=== PATIENT | female | born 1945 | race Caucasian/White ===

== ENCOUNTER 2020-11-08 08:02 | Observation (INO) ==
--- NOTE | 2020-10-11 12:13 | PAT Medication Instructions ---
Medication Instructions Date of Service October 11, 2020 Home Medications aspirin 81 mg PO QAM levothyroxine 87.5 mcg PO 6XWK levothyroxine 175 mcg PO WK metformin 500 mg PO BID paroxetine HCl 20 mg PO QAM polyethylene glycol 3350 [Miralax] 17 g PO QAM PRN simvastatin 40 mg PO QAM Continue as directed levothyroxine 87.5 mcg PO 6XWK levothyroxine 175 mcg PO WK DO NOT take the morning of surgery metformin 500 mg PO BID polyethylene glycol 3350 [Miralax] 17 g PO QAM PRN Take morning of surgery With a small sip of water, OTHERWISE NOTHING TO EAT OR DRINK AFTER MIDNIGHT: aspirin 81 mg PO QAM paroxetine HCl 20 mg PO QAM simvastatin 40 mg PO QAM Take evening before surgery metformin 500 mg PO BID Other Notes If you have any questions please call us at [phone] or [phone] or [phone] or [phone]
--- NOTE | 2020-10-13 12:55 | Anesthesiology Consultation ---
Date of Service October 13, 2020 Assessment & Plan (1) Encounter for pre-operative examination: - COVID screening: Per assessment on 10/13: Travel screen negative, no known COVID-19 positive contacts or current COVID-19 related symptoms. Patient fully vaccinated. Surgeon arranging preop COVID testing. Awaiting results. - PCP office visit (10/03/20): "Patient medically clear for right total knee replacement." - S/P Left TKA (12/13/17): SAB at L4 (x1 attempt) + PNB at [facility] - Check BSG AM DOS - Check coags AM DOS (d/t lab error, coags not done with preop labs/most recent coags WNL) Chart Review Chart Review: Acceptable Risk for Surgery and Patient seen in Pre Admission Testing Teaching & Discussion Pre-Anesthesia Teaching/Discussion Notes: Instructed NPO after midnight before surgery,except medications with 15 cc of water. Medication instructions provided according to the PAT guidelines. History Surgery Operation Date: 11/08/20 08:50 Proposed Procedures p Right Total Knee Arthroplasty - Fco Mccarty MD Height/Weight Height: 5 ft 2 in Weight: 94.4 kg Allergies Allergy/AdvReac Type Severity Reaction Status Date / Time No Known Allergies Allergy Verified 10/10/20 15:35 Medications Home Medications Medication Instructions Recorded Confirmed Last Taken aspirin 81 mg PO QAM 10/10/20 10/10/20 Unknown levothyroxine 87.5 mcg PO 6XWK 10/10/20 10/10/20 Unknown levothyroxine 175 mcg PO WK 10/10/20 10/10/20 Unknown metformin 500 mg PO BID 10/10/20 10/10/20 Unknown paroxetine HCl 20 mg PO QAM 10/10/20 10/10/20 Unknown polyethylene glycol 3350 [Miralax] 17 g PO QAM PRN 10/10/20 10/10/20 Unknown simvastatin 40 mg PO QAM 10/10/20 10/10/20 Unknown Past Medical History Medical History Anxiety Diabetes mellitus, type 2 NIDDM Hx of vertigo Hyperlipidemia Hypothyroidism Right knee DJD Exercise / Class Metabolic Activity II 4-5 Yardwork/Stairs/Walk up hill (one flight of stairs (no chest pain, no sob)) Past Family History Family History Other No family history of adverse response to anesthesia Past Surgical History Surgical History History of cataract surgery bilateral History of colonoscopy History of left knee replacement Left TKA (12/13/17): SAB at L4 (x1 attempt) + PNB at [facility] Status post total hip replacement, right Past Anesthesia History No Hx of Anesthesia Complications and No Family Hx of Anesthesia Complications History of PONV No Hx of PONV and No Hx of Motion Sickness Social History Smoking Status: Never smoker Do You Dip or Chew Tobacco: No Hx Alcohol Use: No Hx Substance Use: No Review of Systems + snoring. No witnessed apnea events. Patient denies chest pain, shortness of breath, dyspnea on exertion, joint pain, reflux, cough, wheezing, palpitations. Physical Exam Vital Signs VITALS BP 128/85 P 80 TEMP 98.0 SP02 95%RA RESP 16 PHYSICAL Full neck and c-spine range of motion. Full TMJ range of motion. TMD 3 finger breaths Mallampati Score 2 Dentition: missing molars, + bridge (upper front) Lungs: clear throughout to auscultation Cardiac: regular rate and rhythm, no murmurs noted Spine: normal Carotid arteries: negative bruit Extremities: no edema Testing Laboratory Results 10/13/20 13:25 10/13/20 13:25 Hemoglobin A1c 6.6 % (4.5-5.6) H 10/13/20 13:25 Blood Type O Positive 10/13/20 13:25 Antibody Screen NEGATIVE 10/13/20 13:25 09/30/20 T3 96 (WNL) FREE T4 0.86L TSH 1.91 (WNL) Electrocardiogram Date: 10/03/20 Sinus rhythm at 81 bpm. Low voltage QRS in precordial leads. Poor R wave progression. "No change" per PCP review. Chest X-Ray Date: 10/13/20 FINDINGS: PA and lateral chest radiographs are compared to study dated 09/13/2011. The heart is top normal for projection. There is mild bibasilar atelectasis. No airspace consolidation or pleural effusion is identified. There is no pneumothorax. The skeletal structures are osteopenic. The bony thorax appears intact. Degenerative change and hyperkyphosis are noted in the thoracic spine. IMPRESSION: No active disease in the chest.
--- NOTE | 2020-10-13 13:57 | XRay Report ---
TWO VIEW CHEST CLINICAL HISTORY: Preoperative examination. Degenerative joint disease. FINDINGS: PA and lateral chest radiographs are compared to study dated 09/13/2011. The heart is top no rmal for projection. There is mild bibasilar atelectasis. No airspace consolidation or pleural effusi on is identified. There is no pneumothorax. The skeletal structures are osteopenic. The bony thorax a ppears intact. Degenerative change and hyperkyphosis are noted in the thoracic spine. IMPRESSION: No active disease in the chest. ACT 112: Negative or not required by law. Electronically signed by: Adria Brooks M.D. 10/13/2020 1:55 PM
[2020-10-13 15:38] LABS: Basophils # (auto) 0.03 K/uL (0-0.2); Basophils % (auto) 0.5 %; Eosinophils # (auto) 0.28 K/uL (0-0.5); Eosinophils % (auto) 4.7 %; Hematocrit (blood only) 38.9 % (37-47); Immature Granulocytes # (auto) 0.01 K/uL (0.00-0.02); Immature Granulocytes % (auto) 0.2 %; Lymphocytes # (auto) 1.92 K/uL (1.2-3.4); Lymphocytes % (auto) 32.1 %; Mean Corpuscular Hemoglobin 30.4 pg (25-34); Mean Corpuscular Hgb Conc 33.4 g/dL (32-36); Mean Corpuscular Volume 90.9 fL (80-100); Mean Platelet Volume 10.8 fL (7.4-10.4); Monocytes # (auto) 0.55 K/uL (0.11-0.59); Monocytes % (auto) 9.2 %; Neutrophils # (auto) 3.19 K/uL (1.4-6.5); Neutrophils % (auto) 53.3 %; Platelet Count 310 K/uL (130-400); RDW Coefficient of Variation 13.4 % (11.5-14.5); RDW Standard Deviation 44.6 fL (36.4-46.3); Red Blood Count 4.28 M/uL (4.2-5.4); White Blood Count 5.98 K/uL (4.8-10.8)
[2020-10-13 15:45] LABS: BUN Creatinine Ratio 15.5 (10-20); Blood Urea Nitrogen 14 mg/dl (7-18); C Reactive Protein < 0.29 mg/dl (0-0.29); Calcium 9.1 mg/dl (8.5-10.1); Carbon Dioxide 28 mmol/L (21-32); Chloride 107 mmol/L (98-107); Creatinine Clr Calc Pharmacy 57.8 ml/min; Est GFR (African American) 72.5 ml/min; Est GFR (Non-African American) 62.5 ml/min; Glucose 106 mg/dl (70-99); Potassium 4.1 mmol/L (3.5-5.1); Sodium 139 mmol/L (136-145)
[2020-10-14 06:18] LABS: Estimated Average Glucose 143 mg/dl; Hemoglobin A1C 6.6 % (4.5-5.6)
--- NOTE | 2020-11-05 14:50 | History and Physical Report ---
DATE OF ADMISSION: 11/08/2020 CHIEF COMPLAINT: Right knee pain. HISTORY OF PRESENT ILLNESS: The patient is a 74-year-old white female who presents for surgical treatment of her right knee. She has got a long history of joint problems, had a left knee replacement done by myself in 2018 and a right hip replacement done by Dr. Shrestha in the past. She developed increased pain and discomfort in her right knee. The shots helped her initially, but became less successful over time. The last 2 shots have not helped much at all. She describes global pain. The more she is up on it, the more it hurts. She limps more as the day goes on. She would like to have her right knee fixed. PAST MEDICAL HISTORY: 1. Diabetes x4 years. 2. Anxiety/depression. 3. Obesity with BMI of 39. PAST SURGICAL HISTORY: Include, 1. Left knee replacement done on 12/15/2017. 2. Right hip replacement done on 10/10/2011. ALLERGIES: None. CURRENT MEDICATIONS: 1. Metformin 500 mg in the morning. 2. Paxil 20 mg daily. 3. Zocor 40 mg a day. 4. Aspirin 81 mg. 5. Tylenol. SOCIAL HISTORY: A 74-year-old white female. She is a . Lives by herself. Her son lives next door. FAMILY HISTORY: Noncontributory. REVIEW OF SYSTEMS: Significant for diabetes. Her diabetes is fairly well controlled. Denies any chest pain or shortness of breath. No history of DVT or PE. No known bleeding problems. PHYSICAL EXAMINATION: GENERAL: Shows a pleasant, middle-aged female. Looks to be in pretty good health. HEENT: Benign. NECK: Supple, no lymphadenopathy. LUNGS: Clear to auscultation. HEART: Regular rate and rhythm. ABDOMEN: Soft, nontender, nondistended. EXTREMITIES: Grossly neurovascularly intact except as follows: Examination of the right knee reveals the patient walks with a slight bit of a limp. She has got valgus alignment to her knee, which is increased with weightbearing. She has moderate soft tissue envelope. Small knee effusion. Range of motion is about 5 degrees short of full extension to 125 degrees of flexion. No instability. No pain with hip motion. X-RAYS: X-rays of the right knee reviewed. It shows advanced right knee lateral compartment DJD. She has complete loss of her lateral joint space. She has got osteophytes primarily laterally. ASSESSMENT: A 74-year-old white female with a history of a left knee replacement as well as right hip replacement with multiple comorbidities including diabetes, obesity, and anxiety/depression, now desiring a right total knee replacement. She has failed conservative measures and would like to proceed with a knee replacement. PLAN: We are going to proceed with right knee replacement. The risks and benefits of this procedure were explained to the patient including, but not limited to, DVT, PE, , infection, neurological injury, vascular injury, bleeding problem, pain, limited range of motion, stiffness, failure to relieve her symptoms, incomplete relief of symptoms, need for further surgery in the future, fracture, leg length inequality, nerve palsy, etc. The patient understands and desires to proceed. Informed consent was obtained. As far as discharge plans, she is hoping to go home with some home health. Her son lives next door to her and hopefully can assist in her care. She knows to hold her metformin the morning of surgery.
[~2020-11-08 08:02] MED LIST: ACETAMINOPHEN 500 MG TAB PO SCH; BUPIVACAINE 0.5 % 5 MG/1 ML PF 10ML VIAL ONE; BUPIVACAINE LIPOSOME/PF 266 MG, BUPIVACAINE/EPINEPHRINE 50 ML, SODIUM CHLORIDE 0.9% 30 ... INFIL SCH; EPINEPHrine INJ 1 MG/ML AMP ONE; FAMOTIDINE 20 MG TAB PO SCH; GABAPENTIN 300 MG CAP PO SCH; LR 500ML BOLUS, THEN 15ML/HR IV SCH; LR 60ML/HR IV SCH; ROPIVACAINE 0.5% 5 MG/ML 30 ML VIAL ONE; Scopolamine 1 MG TDSY TD SCH; TRANEXAMIC ACID 1,000 MG **IV Intra-op IV SCH; ceFAZolin 2000MG 2,000 MG/15 ML SYR IV SCH
--- NOTE | 2020-11-08 08:49 | History & Physical Bridge Note ---
Date of Service November 08, 2020 History & Physical Bridge Note I have examined the patient, reviewed the History & Physical and in the interval since the performance of the History & Physical I have noted the following changes of clinical significance: no changes noted
[2020-11-08 09:19] LABS: Partial Thromboplastin Ratio 1.1; Partial Thromboplastin Time 27.9 Seconds (21.0-31.0); Prothrombin Time 9.9 Seconds (9.0-12.0)
[2020-11-08] MEDS ORDERED: fentaNYL citrate 100 MCG/2 ML VIAL ONE (09:29)
[2020-11-08] MEDS ORDERED: PROPOFOL IV EMULSION 10 MG/ML 20 ML VIAL IV ONE ×3 (09:29→12:22)
[2020-11-08] MEDS ORDERED: MIDAZOLAM HCL 1 MG/ML 2ML VIAL ONE (09:29)
[2020-11-08] MEDS ORDERED: SODIUM CHLORIDE 0.9% PF 50 ML VIAL ONE (11:18)
[2020-11-08] MEDS ORDERED: BUPIVACAINE LIPOSOME 1.3% 266 MG/20 ML VIAL ONE (11:18)
[2020-11-08] MEDS ORDERED: BUPIVACAINE 0.25% 30 ML VIAL ONE (11:19)
[2020-11-08] MEDS ORDERED: EPINEPHrine INJ 1 MG/ML AMP ONE (11:19)
[2020-11-08] MEDS ORDERED: ATROPINE SULFATE 0.1 MG/ML 10ML SYR IV PRN (11:37)
[2020-11-08] MEDS ORDERED: ePHEDrine sulfate 50 MG/ML AMP IV PRN (11:37)
[2020-11-08] MEDS ORDERED: PHENYLEPHRINE 100MCG/ML 5ML SYR ONE (12:23)
--- NOTE | 2020-11-08 13:23 | Operative Report ---
Post Operative Report Pre & Post Diagnosis Operation Date: 11/08/20 10:40 Pre-Op Diagnosis: Right Knee Advanced Degenerative Joint Disease Post-Op Diagnosis: Right Knee Advanced Degenerative Joint Disease I identified the patient and participated in the time-out.: Yes Procedure Operation Date: 11/08/20 10:40 Actual Procedures p Right Total Knee Arthroplasty(Right) - Fco Mccarty MD Surgeon Fco Mccarty MD Medical Oncologist ERIKA Gonzalez Estimated Blood Loss 50 Findings Consistent with Post-Op Diagnosis Operative findings revealed fairly extensive grade 4 ofte-ez-dapo disease in all 3 compartments most severe in the lateral compartment. She had a valgus deformity to her knee with a significant knee joint effusion. Fluids 700 cc Specimens Right knee sent for pathology Drains None Anesthesia Type Spinal MAC Disposition Accompanied Patient To Recovery: No Disposition: Recovery Room Indications Patient is a 74-year-old female whose had a history of multiple orthopedic joint problems in the past. She had her left knee replaced in the past as well as her right hip. Over the years she developed increased pain discomfort in her right knee. She failed conservative measures. She elected proceed with surgical treatment. Description of Procedure Operative implants consist of: 1. Biomet Vanguard size 62.5 right posterior stabilized femoral component. 2. Biomet Vanguard size 63 tibial tray. 3. 12 mm posterior stabilized polyethylene insert. 4. 28 x 8 all polypatella. Patient was taken the operating, identified, placed on the operating table supine position but all contractors were appropriately padded. IV antibiotics tried by anesthesia team. A spinal anesthetic and abductor canal block had provided in the holding area. Daniels catheter was placed in sterile fashion a right thigh turn was then placed in the right lower extremities and prepped and draped in usual sterile fashion. The right leg was elevated exsanguinated with use of an Esmarch and turns placed at 300 mmHg. An anterior approach to the right knee was then performed through longitudinal incision centered over the patella. Sharp dissection was got through subcutaneous is down the extensor mechanism. A medial parapatellar arthrotomy incision was made. Some subperiosteal dissection was carried out medially. The fat pad was resected from each patella tendon. Lateral patellofemoral ligament was released. Patella subluxated laterally and the knee was flexed. The osteophytes taken off distal femur. The ACL and PCL were then released from distal femur and the tibia subluxated anteriorly. The external tibial alignment jig was then placed in the interface the tibia and adjusted 12 mm medially. Proximal tibial cut was made remove about 3 to 4 mm of bone from the medial side. The tibia sized to a size 63. Attention drawn the femur. The distal femur examined the sharp drill bit intramedullary canal was suction. A right 5 valgus cutting guide was placed. The distal femoral cutting block was pinned in place. Distal femoral cut was made to take an additional 3 mm of bone off distal femur. The femur was then sized to a size 62.5. We did downsize this slightly. The AP cutting block was pinned parallel to the epicondylar axis which was 3 of external rotation. Anterior cut, anterior chamfer, posterior cut, posterior chamfer cuts were made. Box cutting guide was placed in just slight lateral and the box cut was made. The knee was flexed. The remnants of the medial and lateral menisci were excised. The osteophyte taken off the posterior aspect the femur. A trial femoral component was placed. The tibial tray was pinned in maximum external rotation and the drill and stem punch used to create defect in proximal tibia for the tibial tray. The knee was then trialed and 12 mm insert fit most appropriately. Attention drawn the patella. The patella was cleaned of all soft tissues. Patella thickness measured 18 mm in thickness was cut down to 12. Was sized to a size 28 patella. The lug holes were drilled for the 28 patella. The lateral osteophyte was removed. Patella button was placed. Knee was taken through range of motion patella tracked nicely with no thumbs test. Attention drawn to placing permanent components. All trial components were removed. A bone plug was placed in the distal femur limit blood loss put a double batch Pal[place]os G cement was mixed. A Biomet Vanguard size 62.5 right posterior stabilized femoral component, size 63 tibial tray, a 12 mm posterior stabilized polyethylene insert, and a 28 x 8 all polypatella were then cemented in place. Knee was brought out into full extension until cement hardened. Final cement check was then performed. Pericapsular tissues were injected with a total 100 cc of combination of 20 cc of Exparel, 30 cc normal saline, 50 cc of quarter percent Marcaine with epinephrine. Patient did receive 1 g tranexamic acid per the turn was then let down for turn time 56 min. Hemostasis assured use electrocautery. The wounds once again irrigated. The extensor mechanism closed with combination 1 PDS suture #1 Vicryl suture in [id number] fashion. The extensor mechanism checked found to be intact the subcutaneous tissue then closed with 2 Dexon suture in a buried interrupted fashion skin was closed skin viv. Leg was then cleaned dried a sterile dressing was Xeroform, 4 x 4's, sterile cast padding, Talib bandage were applied. Patient then transferred to the recovery room in stable condition. Patient tolerated procedure well and there were no complications. Carlos Gonzalez, my physician rehab assistant, was present for the entire procedure. His assistance was essential and required for appropriate patient positioning, prepping and draping, surgical exposure, performing the technical details of the operation, placement the implants, closure of the wound, and placement of the sterile bandage. I attest to the content of the Intraoperative Record and any orders documented therein. Any exceptions are noted below.
--- NOTE | 2020-11-08 13:57 | Anesthesiology Progress Note ---
Date of Service November 08, 2020 Anesthesia Post Procedure Vital Signs Vital Signs: Temp Pulse Pulse Resp BP Pulse Ox 11/08/20 13:55 80 16 130/78 94 11/08/20 13:45 36.2 C L 83 16 124/74 94 11/08/20 13:35 87 18 112/82 94 11/08/20 13:25 90 18 111/56 L 95 11/08/20 13:17 36.4 C L 96 H 17 120/50 L 98 11/08/20 10:01 189/96 H 11/08/20 09:43 36.6 C 98 H 20 170/103 H 95 11/08/20 08:52 36.9 C 93 H 20 169/88 H 97 Transfer of Care Handoff Completed per policy Notes Mental Status: alert / awake / arousable Patient Amnestic to Procedure: Yes Nausea / Vomiting: adequately controlled Pain: adequately controlled Airway Patency, RR, SpO2: stable & adequate BP & HR: stable & adequate Hydration State: stable & adequate Neuraxial Anesthesia: was administered and sensory block is resolving Anesthetic Complications: no major complications apparent
[2020-11-08] MEDS ORDERED: POLYETHYLENE (MIRALAX) 17 GM PACK PO PRN (14:10)
[2020-11-08] MEDS ORDERED: ALUMINUM/MAGNESIUM SUSP 30 ML UDC PO PRN (14:10)
[2020-11-08] MEDS ORDERED: traMADol HCL 50 MG TABLET PO PRN (14:10)
[2020-11-08] MEDS ORDERED: METOCLOPRAMIDE HCL INJ 5 MG/ML 2 ML VIAL IV PRN (14:10)
[2020-11-08] MEDS ORDERED: ONDANSETRON INJ 2 MG/ML 2 ML VIAL IV PRN (14:10)
[2020-11-08] MEDS ORDERED: NALOXONE HCL 0.4 MG/1 ML VIAL/CARP IV PRN (14:10)
[2020-11-08] MEDS ORDERED: bisacodyL 10 MG SUPP PR PRN (14:10)
[2020-11-08] MEDS ORDERED: MAGNESIUM HYDROXIDE SUSP 30 ML UDC PO PRN (14:10)
[2020-11-08] MEDS ORDERED: HYDROmorphone INJ 0.5 MG/0.5 ML SYR IV PRN (14:10)
[2020-11-08] MEDS ORDERED: PHARMACY GLYCEMIC MGMT CONSULT PRN (14:22)
--- NOTE | 2020-11-08 14:22 | XRay Report ---
XR knee RT 1 or 2V routine CLINICAL HISTORY: Surgical Post Op COMPARISON: Knee radiographs September 21, 2020 FINDINGS: Alignment of the total right knee arthroplasty is anatomic. There is no periprosthetic fra cture or unexpected radiopaque foreign body. There are skin viv. IMPRESSION: Expected findings following total right knee arthroplasty. ACT 112: Negative or not required by law. Electronically signed by: Daniel Byrd M.D. 11/08/2020 2:20 PM
[2020-11-08] MEDS: SODIUM CHLORIDE 0.9% 1000ML 1,000 ML IV SCH (14:32)
[2020-11-08] MEDS ORDERED: GLUCAGON FOR INJ 1 MG VIAL IM PRN (14:45)
[2020-11-08] MEDS ORDERED: GLUCOSE 40% GEL 15 GM TUBE PO PRN (14:45)
[2020-11-08] MEDS ORDERED: GLUCOSE 10 TABS/TUBE PO PRN (14:45)
[2020-11-08] MEDS ORDERED: DEXTROSE 50% 50 ML SYRINGE IV PRN (14:45)
[2020-11-08] MEDS ORDERED: CARBOHYDRATES FOR HYPOGLYCEMIA PO PRN (14:45)
--- NOTE | 2020-11-08 14:46 | Pharmacy Report ---
Pharmacy Glycemic Short Note 2 - Date of Service November 08, 2020 - Glycemic Short BSG Results (Last 24 hours): 11/08/20 11/08/20 09:14 13:22 POC Glucose 140 H 107 H OUTPATIENT ANTIDIABETIC REGIMEN: * metformin 500mg BID * A1c:6.6% 10/13/20 ASSESSMENT: * Patient post op following a R TKA * Both pre-op and post op BSGs adequate (140 an 107 mg/dL, respectively). Patient does not appear to have received steroids in the OR and no current ongoing orders. * Will initiate a NovoLog scale with dinner and may consider transition to home metformin in the next day or two pending clinical status and BSGs. PLAN FOR INPATIENT GLYCEMIC CONTROL: * Hold outpatient oral diabetes medications * Basal insulin * hold at this time * Bolus insulin * NovoLog per scale ACHS or Q6hrs while NPO * Goal Range: Low 110 mg/dL - High 140 mg/dL * Correction Factor: 25 mg/dL/unit * Nutritional / Prandial insulin per carb ratio of 1 unit per 8 grams CHO consumed PLAN FOR DISCHARGE: * A1c within goal < 7%. May continue home regimen at discharge.
[2020-11-08] MEDS: ACETAMINOPHEN 500 MG TAB PO SCH ×2 (15:06→22:28)
[2020-11-08] MEDS: KETOROLAC TROMETHAMINE 15 MG/ML VIAL IV SCH ×2 (15:07→22:28)
[2020-11-08] MEDS: Scopolamine CHECK PATCH PLACEMENT SCH (15:07)
[2020-11-08] MEDS: ASCORBIC ACID 500 MG TAB PO SCH (17:44)
[2020-11-08] MEDS: INSULIN ASPART 100 UNITS/ML 3 ML PEN SC SCH ×2 (17:45→22:25)
--- NOTE | 2020-11-08 18:43 | Progress Notes ---
DATE OF SERVICE: 11/08/2020. SUBJECTIVE: A 74-year-old white female postop from a right knee replacement. She is doing well. No t have any pain yet. No chest pain or shortness of breath. Not feeling dizzy or lightheaded. OBJECTIVE: VITAL SIGNS: Temperature is 36.4. Vital signs stable. GENERAL: This is a pleasant, elderly female. Sitting up in bed, looks pretty comfortable this after noon. LUNGS: Clear to auscultation. HEART: Has regular rate and rhythm. ABDOMEN: Soft, nontender, nondistended. EXTREMITIES: Grossly neurovascularly intact except as follows. Examination of the right leg reveals the leg to be well aligned. Dressing is clean, dry and intact. She can dorsiflex and plantarflex her foot appropriately. She is neurologically intact. X-rays of the right knee from the recovery room were reviewed. She has a cemented right posterior st abilized total knee arthroplasty. Components looked to be in good position. There are no signs of p roblems. ASSESSMENT: A 74-year-old female postop from the right knee replacement, doing well. Pain is contro lled. She is neurologically intact. PLAN: 1. DVT prophylaxis include thigh-high BHARGAV, SCDs and aspirin twice daily. 2. PT, OT weightbear as tolerated, right total knee protocol. 3. Pain control, doing okay with current pain regimen. 4. IV antibiotics x24 hours. 5. Disposition: She is planning to be discharged to home with some home health. She does live by he rself, but her son lives next door and he is going to assist in her care. If she does not do well in therapy we may have to look into rehab visit. We will see how she does tomorrow in therapy. Job ID: [id number]
[2020-11-08] MEDS ORDERED: TRANEXAMIC ACID / 0.7% NACL 1,000 MG/100 ML BAG IV SCH (19:30)
[2020-11-08] MEDS: ceFAZolin 2000MG 2,000 MG/15 ML SYR IV SCH (20:11)
[2020-11-08] MEDS: ASPIRIN 81 MG ECTAB PO SCH (20:12)
[2020-11-08] MEDS: DOCUSATE SODIUM 100 MG CAP PO SCH (20:12)
[2020-11-08] MEDS ORDERED: SENNA 8.6 MG TAB PO SCH (21:00)
[2020-11-09] MEDS: Scopolamine CHECK PATCH PLACEMENT SCH ×2 (00:27→07:13)
[2020-11-09] MEDS: SODIUM CHLORIDE 0.9% 1000ML 1,000 ML IV SCH (00:27)
[2020-11-09] MEDS: ceFAZolin 2000MG 2,000 MG/15 ML SYR IV SCH (04:15)
[2020-11-09] MEDS: KETOROLAC TROMETHAMINE 15 MG/ML VIAL IV SCH (04:15)
[2020-11-09] MEDS ORDERED: LEVOTHYROXINE SODIUM 175 MCG TABLET PO SCH (06:00)
[2020-11-09] MEDS: ACETAMINOPHEN 500 MG TAB PO SCH (06:15)
[2020-11-09] MEDS: ASCORBIC ACID 500 MG TAB PO SCH (07:09)
[2020-11-09] MEDS: DOCUSATE SODIUM 100 MG CAP PO SCH (07:09)
[2020-11-09] MEDS: ASPIRIN 81 MG ECTAB PO SCH (07:10)
[2020-11-09 07:11] LABS: Hematocrit (blood only) 36.3 % (37-47); Hemoglobin 12.2 g/dL (12.0-16.0); Mean Corpuscular Hgb Conc 33.6 g/dL (32-36); Mean Corpuscular Volume 89.4 fL (80-100); Mean Platelet Volume 10.3 fL (7.4-10.4); Platelet Count 274 K/uL (130-400); RDW Coefficient of Variation 13.3 % (11.5-14.5); RDW Standard Deviation 43.4 fL (36.4-46.3); Red Blood Count 4.06 M/uL (4.2-5.4); White Blood Count 6.57 K/uL (4.8-10.8)
[2020-11-09 07:30] LABS: BUN Creatinine Ratio 11.8 (10-20); Calcium 8.4 mg/dl (8.5-10.1); Creatinine Clr Calc Pharmacy 49.6 ml/min; Est GFR (African American) 60.2 ml/min; Est GFR (Non-African American) 51.9 ml/min
--- NOTE | 2020-11-09 07:36 | Orthopedic Progress Note ---
Date of Service November 09, 2020 Assessment & Plan (1) Status post total right knee replacement: Continue PT/OT. Discharge planning: We'll see how she does with PT today. She lives alone. Her son is next door to help. Her cousin is coming to stay with her today if she goes home. We'll see how therapy goes today, possibly discharge home today with home health, vs rehab. If she goes home today she can change dressing tomorrow. Pain is controlled. DVT prophylaxis: teds, scd's, aspirin. Subjective .POD #1 from right tka. Doing pretty well. She's having some knee pain but it's not too bad she said. She is sitting in the chair. She's been out of bed to the chair so far. No other complaints Review of Systems All systems reviewed & are unremarkable except as noted in HPI & below. Physical Exam . Alert and oriented. No distress. Right leg: Dressing clean, dry, intact. She can actively lift her leg with some effort. She can dorsiflex and plantarflex. NVI Results & Data Results & Data Laboratory Results . Diagnostic Findings . PG Care Time/CCT Total # of Minutes Spent Total Time Spent with Patient: Total time spent is greater than 50% in coordination of care (as documented) at patient's floor/unit and/or counseling patient: Coding Level of Care Code 77868 Post Operative Follow-Up Diagnoses Status post total right knee replacement Z96.651
[2020-11-09] MEDS ORDERED: metFORMIN HCL 500 MG TAB PO SCH (08:00)
[2020-11-09] MEDS: INSULIN ASPART 100 UNITS/ML 3 ML PEN SC SCH (08:36)
[2020-11-09] MEDS ORDERED: MULTIVITAMIN TAB PO SCH (09:00)
[2020-11-09] MEDS ORDERED: PARoxetine HCL 20 MG TAB PO SCH (09:00)
[2020-11-09] MEDS ORDERED: SIMVASTATIN 40 MG TAB PO SCH (09:00)
--- NOTE | 2020-11-11 14:18 | Discharge Summary ---
Date of Service November 11, 2020 Discharge Data Procedures Performed Operation Date: 11/08/20 10:40 Actual Procedures p Right Total Knee Arthroplasty(Right) - Fco Mccarty MD Hospital Course (1) Status post total right knee replacement: 74 year old patient admitted on 11/08/20 and underwent total knee arthroplasty. She tolerated the procedure well and there were no complications. Transferred to the PACU post op and later to the orthopedic floor for further care. She was given ancef for antibiotic prophylaxis. She was also given BHARGAV stockings, SCDs, and aspirin for DVT prophylaxis. Hemoglobin, hematocrit, and vital signs were monitored during her hospital stay and remained stable. Did not require any blood transfusions. There were no complications during her hospital stay. By post op day #1 the patient was tolerating a diabetic diet, pain was reasonably controlled with oral pain medicine, and she was participating in physical therapy. On post op day #1 the patient was discharged home and set up with home health care. She was given printed discharge instructions including prescriptions for extra strength tylenol, aspirin, and tramadol. Continue physical therapy, weight bearing as tolerated. Continue BHARGAV stockings. Follow up approximately 2 weeks post op or sooner if there are problems or concerns. Coding Level of Care Code None Diagnoses Status post total right knee replacement Z96.651
[2020-11-13] MEDS ORDERED: LEVOTHYROXINE SODIUM 175 MCG TABLET PO SCH (06:00)
== END 2020-11-09 11:54 | disposition home health service (06) ==
LOC: ASU 08:02 → 3E 08:02